=== PATIENT | female | born 2000 | race Caucasian/White ===

== ENCOUNTER 2019-02-13 11:42 | Emergency (ER) | payer OTHER ==
[2019-02-13 12:10] VITALS: BP 109/60; PULSE 70; TEMP 98.1; BMI 25.6
--- NOTE | 2019-02-13 12:10 | PDOC ---
Rapid Medical Evaluation Time Seen by Provider: 02/13/19 12:07 Medical Evaluation: Allergies Allergy/AdvReac Type Severity Reaction Status Date / Time No Known Allergies Allergy Verified 01/22/16 10:33 02/13/19 12:08 I have performed a brief in-person evaluation of this patient. The patient presents with a chief complaint of: Atrumatic left 2nd and 3rd toe pain Pertinent physical exam findings: swelling to dorsum of left foot. Erythema present extending from toes 2,3. +DP pulse. FAROM of all toes of left foot I have ordered the following: urine The patient will proceed to the ED for further evaluation. Discharge Disposition - Diagnosis Toe pain, left - Referrals - Patient Instructions - Post Discharge Activity
--- NOTE | 2019-02-13 13:06 | PDOC ---
History of Present Illness - General Chief Complaint: Pain Stated Complaint: TOES INJURY Time Seen by Provider: 02/13/19 12:07 History Source: Patient Exam Limitations: No Limitations - History of Present Illness Initial Comments: 02/13/19 13:56 atient had onset of swelling and tenderness to her left footstarting last week which is progressively worsened. works on her feet for work every day and has been wearing multiple different types of footwear including flat sandals, and high-heeled shoes. Denies any known trauma, no recent change in activity or exercise. Has has not used any medication for relief of pain but has used some ice and tried to elevate while at work butnot successful Occurred: reports: last week Severity: reports: mild, moderate Pain Location: reports: lower extremity (left foot) Modifying Factors: improves with: None Associated Symptoms (Fall): denies symptoms Past History - Travel Traveled outside of the country in the last 30 days: No Close contact w/someone who was outside of country & ill: No - Past Medical History Allergies/Adverse Reactions: Allergies Allergy/AdvReac Type Severity Reaction Status Date / Time No Known Allergies Allergy Verified 01/22/16 10:33 Home Medications: Ambulatory Orders NK [No Known Home Medication] 10/27/15 Thyroid Disease: No - Suicide/Smoking/Psychosocial Hx Smoking History: Never smoked Have you smoked in the past 12 months: No Hx Alcohol Use: No Drug/Substance Use Hx: No Review of Systems - Review of Systems Able to Perform ROS?: Yes Is the patient limited Armenian proficient: Yes Constitutional: Yes: See HPI. No: Symptoms Reported, Malaise HEENTM: No: Symptoms Reported Respiratory: No: Symptoms reported Musculoskeletal: Yes: Symptoms Reported, See HPI, Joint Pain, Joint Swelling Integumentary: Yes: Symptoms Reported, See HPI, Erythema Neurological: No: Symptoms reported All Other Systems: Reviewed and Negative *Physical Exam - Vital Signs Last Vital Signs Temp Pulse Resp BP Pulse Ox 98.1 F 70 20 109/60 100 02/13/19 12:08 02/13/19 12:08 02/13/19 12:08 02/13/19 12:08 02/13/19 12:08 - Physical Exam General Appearance: Yes: Nourished, Appropriately Dressed, Apparent Distress, Mild Distress, Moderate Distress HEENT: positive: MRAIA ANTONIA, Normal ENT Inspection, TMs Normal, Pharynx Normal Neck: positive: Supple Respiratory/Chest: positive: Lungs Clear, Normal Breath Sounds Gastrointestinal/Abdominal: positive: Soft. negative: Tender Extremity: positive: Normal Range of Motion, Tender Integumentary: positive: Erythema, Swelling (to left mid foot and extending into MTP of 2,3 4 digits. Painful to flex and extend. 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 *DC/Admit/Observation/Transfer Diagnosis at time of Disposition: Tendonitis of foot - Discharge Dispostion Disposition: HOME Condition at time of disposition: Stable Decision to Admit order: No - Referrals Referrals: Zeke Rhodes MD [Primary Care Provider] - Luis Espinosa MD [Staff Physician] - - Patient Instructions Printed Discharge Instructions: DI for Tendinitis Additional Instructions: Rest, ice to area on and off for 15 minutes 4-6 times a day Avoid heavy lifting or exercise until pain and swelling is resolved or until further directed Keep area highly elevated to reduce swelling Use splints/Peng wrap as directed Followup with orthopedist in one to 2 days if not improving, if significantly improved may wait one week for followup with orthopedist May use ibuprofen every 6 hours as needed for pain - Post Discharge Activity Forms/Work/School Notes: Back to Work
== END 2019-02-13 14:23 | disposition home or self-care (01) ==
LOC: JERFT 11:42
DX: M77.52 Other enthesopathy of left foot and ankle (principal)
CPT/HCPCS: 73660-TC-LT-FY; 84703; 99282-25

== ENCOUNTER 2019-02-17 02:39 | Emergency (ER) | payer OTHER ==
[2019-02-17 03:09] VITALS: BP 105/69; PULSE 82; TEMP 97.3; BMI 23.0
--- NOTE | 2019-02-17 04:09 | PDOC ---
History of Present Illness - General Chief Complaint: Pain, Acute Stated Complaint: PAIN,RT FOOT Time Seen by Provider: 02/17/19 03:09 History Source: Patient, Old Records Exam Limitations: No Limitations - History of Present Illness Initial Comments: 02/17/19 04:18 HISTORY OF PRESENT ILLNESS: This a 18-year-old woman denies medical history presents emergency department for evaluation of swelling to the dorsum of the right foot for 2-3 days. Patient was seen and evaluated here last week for similar complaint of her left foot was found to have tendinitis. Patient has been wearing an Peng wrap and a hard social shoe with improvement of symptoms on her left foot. 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 Patient wears multiple times of foot where usually sandals at work but was using high-heeled shoes prior to pain starting in her left foot. Patient has not followed up with podiatry or orthopedics since initial injury. No recent travel or sick contacts. PAST MEDICAL HISTORY: Denies past medical history SURGICAL HISTORY: Denies ALLERGIES: No known drug allergies REVIEW OF SYSTEMS General/Constitutional: Denies fever or chills. Denies weakness, weight change. HEENT: Denies change in vision. Denies ear pain or discharge. Denies sore throat. Cardiovascular: Denies chest pain or shortness of breath. Respiratory: Denies cough, wheezing, or hemoptysis. Gastrointestinal: Denies nausea, vomiting, diarrhea or constipation. Denies rectal bleeding. Genitourinary: Denies dysuria, frequency, or change in urination. Musculoskeletal: see HPI Skin and breasts: Denies rash or easy bruising. Neurologic: Denies headache, vertigo, loss of consciousness, or loss of sensation. Psychiatric: Denies depression or anxiety. Endocrine: Denies increased thirst. Denies abnormal weight change. Hematologic/Lymphatic: Denies anemia, easy bleeding, or history of blood clots. Allergic/Immunologic: Denies hives or skin allergy. Denies latex allergy. PHYSICAL EXAM General Appearance: Well-appearing, appropriately dressed. No apparent distress , no intoxication. Respiratory/Chest: Lungs CTAB. No shortness of breath, chest tenderness, respiratory distress, accessory muscle use. No crackles, rales, rhonchi, stridor , wheezing, dullness Cardiovascular: RRR. S1, S2. No JVD, murmur, bradycardia, tachycardia. Vascular Pulses: Dorsalis-Pedis (R): 2+, Dorsalis-Pedis (L): 2+ Musculoskeletal/Extremities: Swelling present to the dorsum of the right foot over the second third and fourth metatarsals. Decreased extension of toes secondary to pain. Increased pain tenderness with passive extension. No tenderness upon palpation of the plantar surface of the foot. No bony tenderness or deformity is noted. Integumentary: Appropriate color, dry, warm. 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 Fully oriented, alert. Appropriate mood/affect. Motor strength 5/5. No appreciable EOM palsy, facial droop or sensory deficit. Past History - Past Medical History Allergies/Adverse Reactions: Allergies Allergy/AdvReac Type Severity Reaction Status Date / Time No Known Allergies Allergy Verified 02/17/19 03:06 Home Medications: Ambulatory Orders NK [No Known Home Medication] 10/27/15 COPD: No Thyroid Disease: No - Immunization History Immunization Up to Date: Yes - Suicide/Smoking/Psychosocial Hx Smoking History: Never smoked Have you smoked in the past 12 months: No Information on smoking cessation initiated: No Hx Alcohol Use: No Drug/Substance Use Hx: No *Physical Exam - Vital Signs Last Vital Signs Temp Pulse Resp BP Pulse Ox 97.3 F L 82 20 105/69 99 02/17/19 02:46 02/17/19 02:46 02/17/19 02:46 02/17/19 02:46 02/17/19 02:46 Medical Decision Making - Medical Decision Making 02/17/19 04:09 02/17/19 04:10 02/17/19 04:20 A/P: 18-year-old female with tendinitis to extensor tendons of the right foot Peng wrap Naprosyn 500 mg orally now Heart soft tissue Discharge home to follow-up with podiatry as needed. *DC/Admit/Observation/Transfer Diagnosis at time of Disposition: Tendonitis of foot - Discharge Dispostion Disposition: HOME Condition at time of disposition: Fair Decision to Admit order: No - Referrals Referrals: Zeke Rhodes MD [Primary Care Provider] - Oniel Vazquez MD [Staff Physician] - Larry Rob MD [Staff Physician] - Theron Juarez DPM [Staff Physician] - - Patient Instructions Additional Instructions: Rest, ice to area on and off for 15 minutes 4-6 times a day Avoid heavy lifting or exercise until pain and swelling is resolved or until further directed Keep area highly elevated to reduce swelling Use splints/Peng wrap as directed Followup with sap crm developer in one to 2 days if not improving, if significantly improved may wait one week for followup with sap crm developer May use ibuprofen every 6 hours as needed for pain - Post Discharge Activity
[2019-02-17] MEDS ORDERED: NAPROXEN 500 MG TABLET (FP) PO ONE (04:11)
[2019-02-17] MEDS ORDERED: NAPROXEN 500 MG TABLET (FP) ONE (04:14)
== END 2019-02-17 04:23 | disposition home or self-care (01) ==
LOC: JER 02:39
DX: M77.9 Enthesopathy, unspecified (principal)
CPT/HCPCS: 99282-25